=== PATIENT | male | born 1990 | race Caucasian/White ===

== ENCOUNTER 2018-05-01 15:19 | Day surgery (SDC) | payer OTHER ==
[~2018-05-01 15:19] MED LIST: ROCURONIUM 50 MG INJ
[2018-05-01] MEDS ORDERED: morphine 2 MG INJ IV (16:00)
[2018-05-01] MEDS ORDERED: ONDANSETRON 4 MG INJ (16:37)
[2018-05-01] MEDS ORDERED: NEOSTIGMINE 3 MG/3 ML SYRINGE (16:37)
[2018-05-01] MEDS ORDERED: MIDAZOLAM 1 MG/ML 2 ML INJ (16:37)
[2018-05-01] MEDS ORDERED: DEXAMETHASONE 4 MG/ML 1 ML INJ (16:37)
[2018-05-01] MEDS ORDERED: ROCURONIUM 50 MG INJ ×2 (16:37→21:45)
[2018-05-01] MEDS ORDERED: GLYCOPYRROLATE 0.4 MG INJ (16:37)
[2018-05-01] MEDS ORDERED: FENTAnyl 50 MCG/ML VIAL (16:37)
[2018-05-01] MEDS ORDERED: PROPOFOL 20 ML (16:37)
[2018-05-01] MEDS ORDERED: CEFAZOLIN 1 GM INJ (16:37)
[2018-05-01] MEDS ORDERED: ROPIVACAINE 0.5 % 30 ML VIAL ×3 (16:38→22:21)
[2018-05-01] MEDS ORDERED: FENTAnyl 50 MCG/ML VIAL IV ×5 (19:00)
[2018-05-01] MEDS ORDERED: ALBUTEROL 0.083% (NEB) 2.5 MG/3 ML AMP HHN ×2 (19:00)
[2018-05-01] MEDS ORDERED: HYDROmorphONE 1 MG/5 ML IV SYRINGE IV ×4 (19:00)
[2018-05-01] MEDS ORDERED: MEPERIDINE 25 MG INJ IV ×2 (19:00)
[2018-05-01] MEDS ORDERED: IPRATROPIUM (NEB) 0.5 MG/2.5 ML AMP HHN ×2 (19:00)
[2018-05-01] MEDS ORDERED: hydrALAzine 20 MG INJ IV ×2 (19:00)
[2018-05-01] MEDS ORDERED: MIDAZOLAM 1 MG/ML 2 ML INJ IV ×2 (19:00)
[2018-05-01] MEDS ORDERED: ONDANSETRON 4 MG INJ IV (19:00)
[2018-05-01] MEDS ORDERED: LABETALOL HCL 20MG INJ IV ×2 (19:00)
[2018-05-01] MEDS ORDERED: EPHEDrine SULFATE 50 MG/5 ML SYG IV ×2 (19:00)
[2018-05-01] MEDS ORDERED: DIPHENHYDRAMINE 50 MG INJ IV (19:00)
[2018-05-01] MEDS ORDERED: OXYCODONE/ACETAMINOPHEN (5/325) TAB PO ×4 (19:00)
[2018-05-01] MEDS ORDERED: TRIMETHOBENZAMIDE 100 MG/ML VIAL IM ×2 (19:00)
[2018-05-01] MEDS: POLYMYXIN/BACITRACIN 1L IRRIG (19:49)
[2018-05-01] MEDS ORDERED: KETOROLAC 30 MG INJ ×2 (21:26→23:05)
[2018-05-01] MEDS: BACITRACIN 0.9 GM OINT (21:54)
[2018-05-01] MEDS ORDERED: BACITRACIN 0.9 GM OINT (21:56)
[2018-05-01] MEDS: HYDROmorphONE 1 MG/5 ML IV SYRINGE IV ×2 (22:21→22:32)
[2018-05-01] MEDS: ONDANSETRON 4 MG INJ IV (22:38)
[2018-05-01] MEDS: DIPHENHYDRAMINE 50 MG INJ IV (22:42)
[2018-05-01] MEDS: FENTAnyl 50 MCG/ML VIAL IV (22:48)
[2018-05-01] MEDS: oxyCODONE 5 MG TAB PO (23:41)
[2018-05-01] MEDS: PREGABALIN 75 MG CAP PO (23:41)
[2018-05-01] MEDS: KETOROLAC 30 MG INJ IV (23:42)
== END 2018-05-02 00:07 | disposition home or self-care (01) ==
LOC: SDS 15:19
DX: S82.831D Other fracture of upper and lower end of right fibula, subsequent encounter for closed fracture with routine healing (principal); W11.XXXD Fall on and from ladder, subsequent encounter; M24.071 Loose body in right ankle
CPT/HCPCS: 27792; 73610-RT; 82306